=== PATIENT | male | born 1965 | race Two or more races ===

== ENCOUNTER 2017-10-02 10:10 | Day surgery (SDC) | payer OTHER ==
[2017-10-02] MEDS ORDERED: NEXIUM 24HR20 M1 PO (12:57)
[2017-10-02] MEDS ORDERED: CARAFATE1 GM/10 ML PO (12:57)
== END 2017-10-02 14:35 | disposition home or self-care (01) ==
LOC: AMB-ENDOS 10:10
DX: K29.60 Other gastritis without bleeding (principal); K44.9 Diaphragmatic hernia without obstruction or gangrene; K29.80 Duodenitis without bleeding